=== PATIENT | male | born 1930 | race Caucasian/White ===

== ENCOUNTER 2017-03-08 06:22 | Emergency (ER) | payer MEDICARE ==
[2017-03-08 06:59] LABS: BASOPHILS 0.1 % (0-2); EOSINOPHILS 0.3 % (0-7); HEMATOCRIT 41.7 % (42.0-54.0); HEMOGLOBIN 13.8 g/dL (13.5-17.5); IMMATURE GRANULOCYTES 0.3 % (0-5); LYMPHOCYTES 11.6 % (15-50); MCH 29.6 pg (26.0-34.0); MCHC 33.1 g/dL (31.0-37.0); MCV 89.3 fL (80.0-100.0); MEAN PLATELET VOLUME 9.2 fL (7.4-10.4); MONOCYTES 4.7 % (2-11); PLATELET COUNT 221 10x3/uL (130-400); RBC 4.67 10x6/uL (4.20-6.10); RDW 15.7 % (11.5-14.5); WBC 11.1 10x3/uL (4.8-10.8)
[2017-03-08 07:29] LABS: INR 2.54 (0.85-1.17); PROTIME 27.5 SECONDS (11.6-15.0)
[2017-03-08 07:32] LABS: ALBUMIN 3.4 g/dL (3.4-5.0); ALKALINE PHOSPHATASE 76 U/L (46-116); ALT (SGPT) 19 U/L (10-68); BILIRUBIN - TOTAL 0.54 mg/dL (0.2-1.3); CALC OSMOLALITY 290 mosm/kg (275-300); CALCIUM 9.1 mg/dL (8.5-10.1); CARBON DIOXIDE 23.4 mmol/L (21.0-32.0); CHLORIDE - SERUM 106 mmol/L (98-107); CREATINE KINASE 38 UL (21-232); CREATININE - SERUM 1.7 mg/dL (0.6-1.3); GLUCOSE 167 mg/dL (74-106); MAGNESIUM - SERUM 1.9 mg/dL (1.8-2.4); POTASSIUM - SERUM 4.4 mmol/L (3.5-5.1); PROTEIN - SERUM 8.2 g/dL (6.4-8.2); SODIUM 142 mmol/L (136-145); TROPONIN-I < 0.017 ng/mL (0.000-0.060); UREA NITROGEN 25 mg/dL (7-18); eGFR NON AFRICAN AMERICAN 41 mL/min (90-120)
== END 2017-03-08 09:50 | disposition home or self-care (01) ==
LOC: D.ER 06:22
PROVIDERS: Emergency Medicine
DX: K52.9 Noninfective gastroenteritis and colitis, unspecified (principal); F17.200 Nicotine dependence, unspecified, uncomplicated; I44.0 Atrioventricular block, first degree; I44.60 Unspecified fascicular block

== ENCOUNTER → 2017-06-06 16:31 | Outpatient (CLI) | payer MEDICARE ==
[2017-06-06 18:20] LABS: CHOL - HDL RATIO 3.6 ratio (2.3-4.9); LDL-HDL RATIO 2.2 ratio (1.5-3.5)
== END | disposition home or self-care (01) ==
LOC: D.LABREF 16:31
PROVIDERS: Internal Medicine Rheumatology
DX: E78.5 Hyperlipidemia, unspecified (principal)

== ENCOUNTER → 2018-03-28 17:07 | Outpatient (CLI) | payer MEDICARE ==
[2018-03-28 17:58] LABS: CHOL - HDL RATIO 3.3 ratio (2.3-4.9)
== END | disposition home or self-care (01) ==
LOC: D.LABREF 17:07
PROVIDERS: Internal Medicine Interventional Cardiology
DX: E78.5 Hyperlipidemia, unspecified (principal)

== ENCOUNTER 2019-08-12 04:16 | Inpatient (IN) | payer MEDICARE ==
[~2019-08-12] VITALS: Ht 165.1 cm; Wt 40.8 kg
[2019-08-12] MEDS ORDERED: COUMADIN1 MG PO (04:25)
[2019-08-12 05:03] LABS: BASOPHILS 0.1 % (0-2); EOSINOPHILS 0.2 % (0-7); HEMATOCRIT 34.2 % (42.0-54.0); HEMOGLOBIN 10.9 g/dL (13.5-17.5); IMMATURE GRANULOCYTES 0.2 % (0-5); LYMPHOCYTES 9.3 % (15-50); MCH 27.1 pg (26.0-34.0); MCHC 31.9 g/dL (31.0-37.0); MCV 85.1 fL (80.0-100.0); MONOCYTES 6.5 % (2-11); NEUTROPHILS 83.7 % (40-80); PLATELET COUNT 235 10x3/uL (130-400); RBC 4.02 10x6/uL (4.20-6.10); RDW 15.6 % (11.5-14.5); WBC 12.3 10x3/uL (4.8-10.8)
[2019-08-12 05:06] LABS: CALC OSMOLALITY 281 mosm/kg (275-300); CALCIUM 8.7 mg/dL (8.5-10.1); CARBON DIOXIDE 25.1 mmol/L (21.0-32.0); CHLORIDE - SERUM 105 mmol/L (98-107); CREATININE - SERUM 1.3 mg/dL (0.6-1.3); POTASSIUM - SERUM 4.1 mmol/L (3.5-5.1); SODIUM 140 mmol/L (136-145); UREA NITROGEN 21 mg/dL (7-18); eGFR NON AFRICAN AMERICAN 55 mL/min (90-120)
[2019-08-12 05:15] LABS: ALBUMIN 2.8 g/dL (3.4-5.0); ALKALINE PHOSPHATASE 55 U/L (46-116); ALT (SGPT) 16 U/L (10-68); AMYLASE - SERUM 109 U/L (25-115); BILIRUBIN - TOTAL 0.62 mg/dL (0.2-1.3); GLUCOSE 100 mg/dL (74-106)
[2019-08-12 05:16] LABS: LIPASE 37 U/L (73-393); TROPONIN-I < 0.017 ng/mL (0.000-0.060)
[2019-08-12 06:41] VITALS: BP 102/48
[2019-08-12 07:05] LABS: APPEARANCE CLEAR (CLEAR); BILIRUBIN NEGATIVE (NEGATIVE); COLOR YELLOW (YELLOW); GLUCOSE NEGATIVE (NEGATIVE); KETONE NEGATIVE (NEGATIVE); NITRITE NEGATIVE (NEGATIVE); PROTEIN NEGATIVE (NEGATIVE); SPECIFIC GRAVITY 1.015 (1.005-1.020); UROBILINOGEN NORMAL (NORMAL)
--- NOTE | 2019-08-12 07:05 | NUR ---
ASSUMED CARE OF PT. RESTING IN BED WITH COVERS OVER HEAD. AROUSES EASILY WHEN NAME CALLED. VSS. NAD NOTED. IVF INFUSING TO LEFT UPPER CHEST PORT VIA PUMP DRSG D/I. COLOSTOMY BAG INTAT TO RLQ WITH MOD AMT LOOSE STOOL NOTED IN BAG. PT HAS URINAL BTW LEGS "I KEEP IT THERE"
[2019-08-12 07:10] VITALS: BP 98/51
--- NOTE | 2019-08-12 07:49 | NUR ---
REPORT CALLED TO PREMA MILLER
--- NOTE | 2019-08-12 07:55 | NUR ---
TRANSPORTED TO ROOM #2233, CONDITION STABLE
[2019-08-12] MEDS ORDERED: LANOXIN125 MCG PO (08:13)
--- NOTE | 2019-08-12 08:18 | NUR ---
PT RECIEVED FROM ER. NO SIGNS OF DISTRESS. IV TO LEFT CHEST PORT PATENT NO REDNESS OR TENDERESS. IV TO LEFT FORARM PATENT. COLOSTOMY RIGHT SIDE PATENT. COMPLAINS OF PAIN. WILL ADDRESS. DENIES ANY FURTHER NEED AT THIS TIME. CALL LIGHT IN REACH. BED LOW POSITION. NO FAMILY AT BEDSIDE AT THIS TIME.
[2019-08-12 08:36] VITALS: BP 124/60
[2019-08-12 08:55] VITALS: BP 83/59; BMI 15.0
[2019-08-12 10:11] LABS: APTT 51.1 SECONDS (22.8-39.4); INR 1.66 (0.85-1.17)
[2019-08-12 11:14] LABS: % SATURATION 6 % (15-55); IRON 15 ug/dl (35-150); TOTAL IRON BIND CAPACITY 227 ug/dl (260-445); UNSAT IRON BIND CAPACITY 212 ug/dl (150-375)
[2019-08-12 13:24] VITALS: BP 84/42
--- NOTE | 2019-08-12 19:30 | NUR ---
A&O X 4, SUPINE IN BED. OSTOMY TO RIGHT ABDOMEN. DRESSING REMOVED, AREA CLEANSED AND NEW BAG APPLIED. STOMA IS PINK AND MOIST, SURROUNDING SKIN APPEARS PINK AND IRRITATED. WILL CONTINUE TO MONITOR.
[2019-08-12 20:50] VITALS: BP 104/48
[2019-08-13 00:59] VITALS: BP 92/39
[2019-08-13 04:06] VITALS: BP 104/40
--- NOTE | 2019-08-13 04:16 | NUR ---
I have reviewed this patient and I concur with the Shift Assessment completed by the Licensed Practical Nurse today this shift.
[2019-08-13 06:50] LABS: BASOPHILS 0 % (0-2); EOSINOPHILS 0.3 % (0-7); HEMATOCRIT 28.8 % (42.0-54.0); HEMOGLOBIN 8.9 g/dL (13.5-17.5); IMMATURE GRANULOCYTES 0.3 % (0-5); MCH 26.4 pg (26.0-34.0); MCHC 30.9 g/dL (31.0-37.0); MCV 85.5 fL (80.0-100.0); MEAN PLATELET VOLUME 9.2 fL (7.4-10.4); MONOCYTES 5.9 % (2-11); NEUTROPHILS 86.5 % (40-80); PLATELET COUNT 188 10x3/uL (130-400); RBC 3.37 10x6/uL (4.20-6.10); RDW 15.7 % (11.5-14.5); WBC 9.3 10x3/uL (4.8-10.8)
[2019-08-13 07:03] LABS: ALBUMIN 2.2 g/dL (3.4-5.0); ANION GAP 14.4 mmol/L (8-16); BILIRUBIN - TOTAL 0.37 mg/dL (0.2-1.3); CARBON DIOXIDE 21.8 mmol/L (21.0-32.0); CREATININE - SERUM 1.2 mg/dL (0.6-1.3); MAGNESIUM - SERUM 1.7 mg/dL (1.8-2.4); PHOSPHOROUS 2.8 mg/dL (2.5-4.9); POTASSIUM - SERUM 4.2 mmol/L (3.5-5.1); PROTEIN - SERUM 5.3 g/dL (6.4-8.2)
[2019-08-13 07:22] LABS: INR 2.12 (0.85-1.17)
[2019-08-13 09:24] VITALS: BP 106/57
--- NOTE | 2019-08-13 11:50 | NUR ---
PATIENT RECIEVED THIS AM RESTING IN BED. PATIENT TOLERATING FULL LIQUID DIET WELL. TURNED AND REPOSITIONED EVERY TWO HOURS. SUPPLEMENT GIVEN BEFORE LUNCH.
[2019-08-13 13:14] VITALS: BP 82/42
[2019-08-13 13:42] VITALS: Ht 165.1 cm; Wt 40.8 kg
--- NOTE | 2019-08-13 14:34 | MORECARE ---
CASE MANAGEMENT DISCHARGE SUMMARY PATIENT: YANNA QUEZADA UNIT: [id number] ADM DATE: 08/12/19 AGE: 88 : 31 SEX: M ROOM/BED: D.2233 AUTHOR: RUIZ KIRKLAND PHYSICIAN: REFERRING PHYSICIAN: KAYKAY NEVILLE MD DATE OF SERVICE: 08/13/19 Discharge Plan Patient Name: [facility] QUEZ[facility] [facility] 1930 Planned Disposition: Inpatient Rehab Anticipated Discharge Date: Discharge Date: Expected LOS: Initial Reviewer: [email or web address] Initial Review Date: 08/13/2019 Generated: 08/13/19 3:34 pm Patient Name: YANNA QUEZADA Page 08888 at 1434 All edits/amendments must be made on the electronic document DICTATION DATE: 08/13/191432 RULING MACHINE FEEDER: ZEINA 08/13/191432 RPT#: [id number] DC DATE: STATUS: ADM IN [facility] [address] [place] [address] END OF REPORT
--- NOTE | 2019-08-13 14:51 | MORECARE ---
CASE MANAGEMENT DISCHARGE SUMMARY PATIENT: YANNA JONES UNIT: [id number] ADM DATE: 08/12/19 AGE: 88 : 31 SEX: M ROOM/BED: D.2233 AUTHOR: RUIZ KIRKLAND PHYSICIAN: REFERRING PHYSICIAN: KAYKAY NEVILLE MD DATE OF SERVICE: 08/13/19 Discharge Plan Patient Name: YANNA JONES [facility] [facility] 1930 Planned Disposition: Inpatient Rehab Anticipated Discharge Date: Discharge Date: Expected LOS: Initial Reviewer: [email or web address] Initial Review Date: 08/13/2019 Generated: 08/13/19 3:51 pm DCPIA - Discharge Planning Initial Assessment Updated by [email or web address]: Keerthi Jaime on 08/13/19 2:49 pm * Is the patient Alert and Oriented? Yes * How many steps to enter\exit or inside your home? few/0 * PCP Dr. Horton * Pharmacy [facility] [address] * Preadmission Environment Home Alone * ADLs Partial Dependent * Partial ADLs (Assistance needed) Ambulation * Equipment Cane Nebulizer Other Oxygen * Other Equipment Portable oxygen * List name and contact numbers for known caregivers / representatives who currently or will assist patient after discharge: Obie Jones - [phone] * Verbal permission to speak to the caregivers and representatives has been obtained from the patient. Yes * Community resources currently utilized None * Additional services required to return to the preadmission environment? Yes * Can the patient safely return to the preadmission environment? No * Has this patient been hospitalized within the prior 30 days at any hospital? Yes Last DP export: 08/13/19 1:34 Patient Name: YANNA JONES Page 71188 at 1451 All edits/amendments must be made on the electronic document DICTATION DATE: 08/13/191450 OUTSIDE PRODUCTION INSPECTOR: ZEINA 08/13/191450 RPT#: [id number] DC DATE: STATUS: ADM IN [facility] [address] [place] [address] END OF REPORT
--- NOTE | 2019-08-13 15:00 | MORECARE ---
CASE MANAGEMENT DISCHARGE SUMMARY PATIENT: YANNA JONES UNIT: [id number] ADM DATE: 08/12/19 AGE: 88 : 31 SEX: M ROOM/BED: D.2233 AUTHOR: MARITADOC PHYSICIAN: REFERRING PHYSICIAN: KAYKAY NEVILLE MD DATE OF SERVICE: 08/13/19 Discharge Plan Patient Name: YANNA JONES Facility: [facility]:[place] : 1930 Planned Disposition: Inpatient Rehab Anticipated Discharge Date: Discharge Date: Expected LOS: Initial Reviewer: [email or web address] Initial Review Date: 08/13/2019 Generated: 08/13/19 4:00 pm Comments DCP- Discharge Planning Updated by [email or web address]: Keerthi Jaime on 08/13/19 1:[address] Patient Name: YANNA JONES Admission Status: Elective Accout number: [id number] Admission Date: 08-12-2019 : 1930 Admission Diagnosis: Attending: KAYKAY NEVILLE Current LOS: 1 Anticipated DC Date: Planned Disposition: Inpatient Rehab Primary Insurance: MEDICARE A & B Discharge Planning Comments: CM met with patient to complete initial dc planning assessment, he is alone in the room. CM educated patient on the CM role and verbal consent given by patient to complete assessment. Patient lives in a RV alone. He states "My son is always over visiting." He states he is independent with his care. He states he still drives and independent with his ADL's. He states he has a cane, declines walker, states no room in the RV for a walker. CM discussed availability of home health, rehab services, and medical equipment. Patient denied known discharge needs at this time. He did say he was weak and is agreeable to rehab, but would like to discuss it with his son first. I left a list of Inpatient rehab units and HHS with him to discuss with his son. CM will continue to follow and will assist as needed with dc plans/needs. Employment Assistant: Keerthi Jaime DCPIA - Discharge Planning Initial Assessment Updated by [id number]: Keerthi Jaime on 08/13/19 2:49 pm * Is the patient Alert and Oriented? Yes * How many steps to enter\\exit or inside your home? few/0 * PCP Dr. Horton * Pharmacy [facility] [address] * Preadmission Environment Home Alone * ADLs Partial Dependent * Partial ADLs (Assistance needed) Ambulation * Equipment Cane Nebulizer Other Oxygen * Other Equipment Portable oxygen * List name and contact numbers for known caregivers / representatives who currently or will assist patient after discharge: Obie Jones - [phone] * Verbal permission to speak to the caregivers and representatives has been obtained from the patient. Yes * Community resources currently utilized None * Additional services required to return to the preadmission environment? Yes * Can the patient safely return to the preadmission environment? No * Has this patient been hospitalized within the prior 30 days at any hospital? Yes Last DP export: 08/13/19 1:51 Patient Name: YANNA OJNES Page [id number] at 1500 All edits/amendments must be made on the electronic document DICTATION DATE: 08/13/19 1500 AUTOMATION TEST DEVELOPER: ZEINA 08/13/19 1500 RPT#: [id number] DC DATE: STATUS: ADM IN [facility] [address] [place] [address] END OF REPORT
[2019-08-13 16:27] VITALS: BP 84/40
--- NOTE | 2019-08-13 20:00 | NUR ---
ASSESSMENT PER FLOWSHEET. IV PATENT LEFT INFUSAPORT OF LR AT 50CC'S/HR AND PROCAL AT 75CC'S/HR. SALINE LOCK PATENT TO LEFT FOREARM. TELM. SHOWS SR WITH HR 84. MAURI MAT IN USE. SR UP X2 CALL LIGHT WITHIN REACH.
[2019-08-13 20:40] VITALS: BP 95/48
--- NOTE | 2019-08-14 | NUR ---
COLOSTOMY BAG HAS STARTED LEAKING STOOL. COMPLETE BED BATH WITH LINENS CHANGED NEW OSTOMY SET APPLIED.
[2019-08-14 01:00] VITALS: BP 92/45
--- NOTE | 2019-08-14 03:00 | NUR ---
EYES CLOSED RESPIRATIONS WITH EASE AND UNLABORED.
[2019-08-14 04:47] VITALS: BP 89/40
[2019-08-14 06:36] LABS: BASOPHILS 0.2 % (0-2); EOSINOPHILS 0.3 % (0-7); HEMATOCRIT 25.8 % (42.0-54.0); HEMOGLOBIN 8.3 g/dL (13.5-17.5); IMMATURE GRANULOCYTES 0.5 % (0-5); LYMPHOCYTES 11.7 % (15-50); MCH 27.1 pg (26.0-34.0); MCHC 32.2 g/dL (31.0-37.0); MCV 84.3 fL (80.0-100.0); MEAN PLATELET VOLUME 9.1 fL (7.4-10.4); MONOCYTES 7.4 % (2-11); NEUTROPHILS 79.9 % (40-80); PLATELET COUNT 166 10x3/uL (130-400); RBC 3.06 10x6/uL (4.20-6.10); RDW 15.6 % (11.5-14.5)
[2019-08-14 06:55] LABS: INR 1.78 (0.85-1.17)
[2019-08-14 06:56] LABS: CALC OSMOLALITY 274 mosm/kg (275-300); CALCIUM 7.9 mg/dL (8.5-10.1); CARBON DIOXIDE 20.9 mmol/L (21.0-32.0); CHLORIDE - SERUM 106 mmol/L (98-107); GLUCOSE 94 mg/dL (74-106); MAGNESIUM - SERUM 1.8 mg/dL (1.8-2.4); POTASSIUM - SERUM 3.9 mmol/L (3.5-5.1); SODIUM 136 mmol/L (136-145); UREA NITROGEN 22 mg/dL (7-18); eGFR NON AFRICAN AMERICAN 75 mL/min (90-120)
[2019-08-14 06:58] LABS: PHOSPHOROUS 1.7 mg/dL (2.5-4.9)
[2019-08-14 07:01] LABS: WBC 6.2 10x3/uL (4.8-10.8)
--- NOTE | 2019-08-14 07:47 | NUR ---
PT IS RESTING IN BED WITH EYES OPEN. RESPIRATIONS ARE EVEN AND UNLABORED. PT REFUSES REPOSITIONING AT THIS TIME AND STATES "I WANT A 2 EGG OMLETE AND PAIN MEDICINE". SEE VITALS FLOWSHEET. PT EDUCATED ON HYPOTENSION AND MEDICATION. PT VERABLIZES UNDERSTANDING BUT STILL DEMANDS MEDICATION. PT IS AAO X 4. MAURI ALARM IS ON AND WORKING. OSTOMY TO RLQ NOTED WITH SCANT AMOUNT OF LIGHT BROWN STOOL NOTED IN BAG. TELEMETRY IS ON. PORT INFUSING PER ORDER WITHOUT DIFFICULTY. PT DENIES FURTHER NEEDS. BED IS IN THE LOWEST POSITION. CALL LIGHT AND BEDSIDE TABLE ARE WITHIN REACH. SIDE RAILS X 2 . ALL FALL PRECAUTIONS ARE IN PLACE. WILL CONT TO MONITOR.
[2019-08-14 09:02] VITALS: BP 100/55
--- NOTE | 2019-08-14 12:36 | NUR ---
Rehab Note- Acute Inpatient Rehab prescreen order received. THe patient is a good inpatient acute rehab candidate if in agreeance with [facility] Acute INpatient Rehab when medically stable and ready for discharge from the acute hospital. Spoke with PASCUAL Pendleton in IDT meeting. Will follow at this time. Thank you for this referral! Tabatha Traylor RN Clinical Liaison, [facility] Rehab
[2019-08-14 12:55] VITALS: BP 91/47
[2019-08-14 16:38] VITALS: BP 86/46
--- NOTE | 2019-08-14 20:00 | NUR ---
ASSESSMENT PER FLOWSHEET. IV PATENT LEFT INFP OF PROCAL AT 75CC'S/HR. LR AT 50CC'S/HR. RIGHT ILEOSTOMY IN PLACE WITH SMALL AMOUNT BROWN STOOL NOTED. VOIDS SMALL AMOUNT JOMAR COLORED UA IN URINAL. DENIES PAIN OR DISCOMFORT. NOW ON ROOM AIR. PRN USE OF O2. TELM. SHOWS SR.
[2019-08-14 20:35] VITALS: BP 88/40
--- NOTE | 2019-08-14 22:00 | NUR ---
MEDS PER MAR. DENIES NEEDS.
[2019-08-15] VITALS (7 sets, daily range): BP systolic 98–138; BP diastolic 45–79
--- NOTE | 2019-08-15 | NUR ---
EYES CLOSED RESPIRATIONS WITH EASE AND UNLABORED.
--- NOTE | 2019-08-15 01:54 | NUR ---
RESTING QUIETLY DENIES NEEDS.
[2019-08-15 07:35] LABS: BASOPHILS 0 % (0-2); EOSINOPHILS 0.5 % (0-7); HEMATOCRIT 27.1 % (42.0-54.0); HEMOGLOBIN 8.5 g/dL (13.5-17.5); IMMATURE GRANULOCYTES 1.2 % (0-5); LYMPHOCYTES 12.4 % (15-50); MCH 26.4 pg (26.0-34.0); MCHC 31.4 g/dL (31.0-37.0); MCV 84.2 fL (80.0-100.0); MEAN PLATELET VOLUME 9.1 fL (7.4-10.4); MONOCYTES 5.6 % (2-11); NEUTROPHILS 80.3 % (40-80); RBC 3.22 10x6/uL (4.20-6.10); RDW 15.7 % (11.5-14.5); WBC 6.6 10x3/uL (4.8-10.8)
--- NOTE | 2019-08-15 07:37 | NUR ---
AWAKE AND ALERT. ORIENTED X3. NO C/O AT THIS TIME. LUNGS ARE CLEAR BUT DIMINISHED THROUGHOUT. NO COUGH NOTED. REQUESTED OXYGEN BE PLACED AT 2L NC BECAUSE HE COULDN'T CATCH HIS BREATH. HIS SAT IS 95%. WILL MONITOR. SKIN IS INTACT WITHOUT REDNESS. COLOSTOMY IS PATENT WITHOUT REDNESS. STOMA IS PINK AND VIABLE. LEFT PORT IS PATENT WITHOUT REDNESS AT INSERTION SITE. DENIES NEEDS.
[2019-08-15 07:45] LABS: PLATELET COUNT 202 10x3/uL (130-400)
[2019-08-15 07:50] LABS: CALC OSMOLALITY 272 mosm/kg (275-300); CALCIUM 7.6 mg/dL (8.5-10.1); CARBON DIOXIDE 22.8 mmol/L (21.0-32.0); CHLORIDE - SERUM 106 mmol/L (98-107); CREATININE - SERUM 0.9 mg/dL (0.6-1.3); GLUCOSE 94 mg/dL (74-106); INR 1.64 (0.85-1.17); MAGNESIUM - SERUM 1.8 mg/dL (1.8-2.4); PHOSPHOROUS 1.8 mg/dL (2.5-4.9); POTASSIUM - SERUM 4.2 mmol/L (3.5-5.1); PROTIME 18.8 SECONDS (11.6-15.0); SODIUM 135 mmol/L (136-145); UREA NITROGEN 21 mg/dL (7-18); eGFR NON AFRICAN AMERICAN 85 mL/min (90-120)
--- NOTE | 2019-08-15 08:44 | NUR ---
REQUESTED AND GIVEN ONE HYDROCODONE PO FOR C/O ABDOMENAL PAIN LEVEL 7. WILL MONITOR.
--- NOTE | 2019-08-15 10:00 | NUR ---
ATE MOST OF BREAKFAST. TOOK AM MEDS WITHOUT DIFFICUTLY. DENIES NEEDS.
--- NOTE | 2019-08-15 12:12 | MORECARE ---
CASE MANAGEMENT DISCHARGE SUMMARY PATIENT: YANNA JONES UNIT: [id number] ADM DATE: 08/12/19 AGE: 88 : 31 SEX: M ROOM/BED: D.2233 AUTHOR: RUIZ KRIKLAND PHYSICIAN: REFERRING PHYSICIAN: KAYKAY NEVILLE MD DATE OF SERVICE: 08/15/19 Discharge Plan Patient Name: YANNA JONES Facility[facility]:[place] : 1930 Planned Disposition: Inpatient Rehab Anticipated Discharge Date: Discharge Date: Expected LOS: Initial Reviewer: [email or web address] Initial Review Date: 08/13/2019 Generated: 08/15/19 1:12 pm Comments DCP- Discharge Planning Updated by [email or web address]: Keerthi Jaime on 08/15/19 11:[address] I spoke with the patient again concerning discharge planning/needs. He states "I am not going to rehab, I have to get home." I discussed home health and he declines at this time. He states he would like to go home tomorrow when his son is able to pick him up. I informed him that if he got home and decided he did need rehab or home health, to let his primary care doctor know and they can order it for him and he can be directly admitted to rehab within the next 30 days, voiced understanding. I informed Yesitiny LealRoche that the patient is requesting discharge tomorrow. CM will continue to follow and assist with discharge planning/needs. DCP- Discharge Planning Updated by [email or web address]: Keerthi Jaime on 08/13/19 1:[address] Patient Name: YANNA JONES Admission Status: Elective Accout number: [id number] Admission Date: 08-12-2019 : 1930 Admission Diagnosis: Attending: KAYKAY NEVILLE Current LOS: 1 Anticipated DC Date: Planned Disposition: Inpatient Rehab Primary Insurance: MEDICARE A & B Discharge Planning Comments: CM met with patient to complete initial dc planning assessment, he is alone in the room. CM educated patient on the CM role and verbal consent given by patient to complete assessment. Patient lives in a alone. He states "My son is always over visiting." He states he is independent with his care. He states he still drives and independent with his ADL's. He states he has a cane, declines walker, states no room in the RV for a walker. CM discussed availability of home health, rehab services, and medical equipment. Patient denied known discharge needs at this time. He did say he was weak and is agreeable to rehab, but would like to discuss it with his son first. I left a list of Inpatient rehab units and HHS with him to discuss with his son. CM will continue to follow and will assist as needed with dc plans/needs. Full Stack Developer: Keerthi Jaime DCPIA - Discharge Planning Initial Assessment Updated by [email or web address]: Keerthi Jaime on 08/13/19 2:49 pm * Is the patient Alert and Oriented? Yes * How many steps to enter\\exit or inside your home? few/0 * PCP Dr. Horton * Pharmacy [facility] [address] * Preadmission Environment Home Alone * ADLs Partial Dependent * Partial ADLs (Assistance needed) Ambulation * Equipment Cane Nebulizer Other Oxygen * Other Equipment Portable oxygen * List name and contact numbers for known caregivers / representatives who currently or will assist patient after discharge: Obie Jones - [phone] * Verbal permission to speak to the caregivers and representatives has been obtained from the patient. Yes * Community resources currently utilized None * Additional services required to return to the preadmission environment? Yes * Can the patient safely return to the preadmission environment? No * Has this patient been hospitalized within the prior 30 days at any hospital? Yes Coverage Notice Reviewer: [email or web address] Emy Jaime Notice Issued Date-Time: 08/15/2019 12:07 Notice Type: IM Discharge Notice Notice Delivered To: Patient Relationship to Patient: Bacon Skin Lifter Name: Delivery Method: HAND - Hand Delivered Sis Days: Prior Verbal Notification: Recipient Understood Notice: Yes Recipient Signature: Yes Med Rec Note Co-signed by Attending: Coverage Notice Comment: IMM explained, signed, copy placed in MR Reviewer: [email or web address] Emy Jaime Notice Issued Date-Time: 08/15/2019 12:07 Notice Type: Patient Choice Letter Notice Delivered To: Patient Relationship to Patient: Bacon Skin Lifter Name: Delivery Method: HAND - Hand Delivered Sis Days: Prior Verbal Notification: Recipient Understood Notice: Yes Recipient Signature: Yes Med Rec Note Co-signed by Attending: Coverage Notice Comment: Declines [facility] Last DP export: 08/13/19 2:00 Patient Name: YANNA JONES Page [id number] at 1212 All edits/amendments must be made on the electronic document DICTATION DATE: 08/15/191211 BOX LINING MACHINE FEEDER: ZEINA 08/15/191211 RPT#: [id number] DC DATE: STATUS: ADM IN [facility] [address] [place] [address] END OF REPORT
--- NOTE | 2019-08-15 14:18 | NUR ---
Nutrition follow-up: Diet advanced to regular soft PO intake ~50% average of last 3 meals; ate good at lunch today Labs reviewed Wt: 90# Pt reports he is gassy today because he ate so much yesterday. RDN following.
--- NOTE | 2019-08-15 18:40 | NUR ---
ATE ABOUT HALF OF SUPPER. DENIES NEEDS. NO CHANGES NOTED.
[2019-08-15] MEDS ORDERED: LEVAQUIN750 MG PO (22:18)
[2019-08-15] MEDS ORDERED: FLAGYL500 MG PO (22:20)
--- NOTE | 2019-08-16 01:30 | NUR ---
PT AGITATED BED ALARM SOUNDING FREQUENTLY WHILE MOVING IN BED. MAURI IQBAL SIGNED. LINENS CHANGED. PT STATES HE WANTS TO BUY A PACK OF CIGARETTES, BUT WILL NOT WEAR A NICOTINE PATCH. PT IN BED, DENIES NEEDS AT THIS TIME, STATES HE'S JUST STAYING UNTIL 7AM. WILL CONTINUE TO MONITOR.
[2019-08-16 05:54] VITALS: BP 97/48
--- NOTE | 2019-08-16 06:33 | NUR ---
I have reviewed this patient and I concur with the Shift Assessment completed by the Licensed Practical Nurse today this shift.
--- NOTE | 2019-08-16 07:30 | NUR ---
PT AT DESK REQUESTING TO BE DISCHARGED AND VOICES HE WILL LEAVE AMA. DISCUSSED WITH PT ABOUT BEING DISCHARGED AND AWAITING ORDERS FROM PULMANOLOGIST, PT CONTINUES TO VOICE WISHES TO GO HOME. DR. QURESHI NOTIFIED. HE VOICES ALLOW PT TO SIGN OUT AMA, THAT HE FEELS THAT HE HAS CHF AND NEEDS FURTHER TREATMENT.
--- NOTE | 2019-08-16 08:02 | NUR ---
PT DISCHARGE PAPERWORK TAKEN INTO ROOM WITH AMA. DISCUSSED WITH PATIENT AMA. PT CONTINUES TO VOICE WISHES TO DISCHARGE HOMES. SON AT BEDSIDE. DISCUSSED MEDICATIONS CALLED INTO [facility] AND ORDERED BY PCP. SON VOICES HE WILL SHRUB PLANTER MEDICATIONS FOR PT TO TAKE. PORT TO LEFT CHEST WALL FLUSHED WITH HEPARIN AND DISCONTINUED. COVERED WITH 2X2 AND COVERED WITH TEGADERM. PT SIGNED PAPERWORK AND TAKEN OUT VIA W/C TO PRIVATE VEHICLE WITH ALL PERSONAL BELONGINGS.
--- NOTE | 2019-08-16 14:15 | MORECARE ---
CASE MANAGEMENT DISCHARGE SUMMARY PATIENT: YANNA JONES UNIT: [id number] ADM DATE: 08/12/19 AGE: 88 : 31 SEX: M ROOM/BED: D.2233 AUTHOR: RUIZ KIRKLAND PHYSICIAN: REFERRING PHYSICIAN: KAYKAY NEVILLE MD DATE OF SERVICE: 08/16/19 Discharge Plan Patient Name: YANNA JONES Facility: [facility]:[place] : 1930 Planned Disposition: Inpatient Rehab Anticipated Discharge Date: Discharge Date: 08/16/2019 Expected LOS: 0 Initial Reviewer: [email or web address] Initial Review Date: 08/13/2019 Generated: 08/16/19 3:15 pm Comments DCP- Discharge Planning Updated by [email or web address]: Keerthi Jaime on 08/15/19 11:[address] I spoke with the patient again concerning discharge planning/needs. He states "I am not going to rehab, I have to get home." I discussed home health and he declines at this time. He states he would like to go home tomorrow when his son is able to pick him up. I informed him that if he got home and decided he did need rehab or home health, to let his primary care doctor know and they can order it for him and he can be directly admitted to rehab within the next 30 days, voiced understanding. I informed Yesitiny Roche that the patient is requesting discharge tomorrow. CM will continue to follow and assist with discharge planning/needs. DCP- Discharge Planning Updated by [email or web address]: Keerthi Rubiogio on 08/13/19 1:[address] Patient Name: YANNA JONES Admission Status: Elective Accout number: [id number] Admission Date: 08-12-2019 : 1930 Admission Diagnosis: Attending: KAYKAY NEVILLE Current LOS: 1 Anticipated DC Date: Planned Disposition: Inpatient Rehab Primary Insurance: MEDICARE A & B Discharge Planning Comments: CM met with patient to complete initial dc planning assessment, he is alone in the room. CM educated patient on the CM role and verbal consent given by patient to complete assessment. Patient lives in a alone. He states "My son is always over visiting." He states he is independent with his care. He states he still drives and independent with his ADL's. He states he has a cane, declines walker, states no room in the RV for a walker. CM discussed availability of home health, rehab services, and medical equipment. Patient denied known discharge needs at this time. He did say he was weak and is agreeable to rehab, but would like to discuss it with his son first. I left a list of Inpatient rehab units and HHS with him to discuss with his son. CM will continue to follow and will assist as needed with dc plans/needs. Principal Software Engineer: Keerthi Jaime DCPIA - Discharge Planning Initial Assessment Updated by [email or web address]: Keerthi Jaime on 08/13/19 2:49 pm * Is the patient Alert and Oriented? Yes * How many steps to enter\\exit or inside your home? few/0 * PCP Dr. Horton * Pharmacy [facility] [address] * Preadmission Environment Home Alone * ADLs Partial Dependent * Partial ADLs (Assistance needed) Ambulation * Equipment Cane Nebulizer Other Oxygen * Other Equipment Portable oxygen * List name and contact numbers for known caregivers / representatives who currently or will assist patient after discharge: Obie Jones - [phone] * Verbal permission to speak to the caregivers and representatives has been obtained from the patient. Yes * Community resources currently utilized None * Additional services required to return to the preadmission environment? Yes * Can the patient safely return to the preadmission environment? No * Has this patient been hospitalized within the prior 30 days at any hospital? Yes Coverage Notice Reviewer: [id number] Emy Jaime Notice Issued Date-Time: 08/15/2019 12:07 Notice Type: IM Discharge Notice Notice Delivered To: Patient Relationship to Patient: Drug Clerk Name: Delivery Method: HAND - Hand Delivered Sis Days: Prior Verbal Notification: Recipient Understood Notice: Yes Recipient Signature: Yes Med Rec Note Co-signed by Attending: Coverage Notice Comment: IMM explained, signed, copy placed in MR Reviewer: [email or web address] Emy Jaime Notice Issued Date-Time: 08/15/2019 12:07 Notice Type: Patient Choice Letter Notice Delivered To: Patient Relationship to Patient: Drug Clerk Name: Delivery Method: HAND - Hand Delivered Sis Days: Prior Verbal Notification: Recipient Understood Notice: Yes Recipient Signature: Yes Med Rec Note Co-signed by Attending: Coverage Notice Comment: Declines [facility] Last DP export: 08/15/19 11:12 Patient Name: YANNA JONES Page 82510 at 1415 All edits/amendments must be made on the electronic document DICTATION DATE: 08/16/191414 SURVEY QUESTIONNAIRE DESIGNER: ZEINA 08/16/191414 RPT#: [id number] DC DATE:08/16/19 STATUS: DIS IN [facility] [address] [place] [address] END OF REPORT
== END 2019-08-16 08:26 | disposition home or self-care (01) | DRG 871 ==
LOC: D.ER 04:16 → D.MS 06:56
PROVIDERS: Family Medicine; Radiology Diagnostic Radiology; ADMIT Internal Medicine Nephrology; ATTEND Internal Medicine Nephrology
DX: A41.9 Sepsis, unspecified organism (principal); E43 Unspecified severe protein-calorie malnutrition; J69.0 Pneumonitis due to inhalation of food and vomit; K51.014 Ulcerative (chronic) pancolitis with abscess; J98.09 Other diseases of bronchus, not elsewhere classified; I95.9 Hypotension, unspecified; I25.10 Atherosclerotic heart disease of native coronary artery without angina pectoris; J43.9 Emphysema, unspecified; I71.4 Abdominal aortic aneurysm, without rupture; Z93.3 Colostomy status; Z85.038 Personal history of other malignant neoplasm of large intestine; R00.0 Tachycardia, unspecified; D50.9 Iron deficiency anemia, unspecified; D72.829 Elevated white blood cell count, unspecified

== ENCOUNTER 2019-09-09 12:01 | Inpatient (IN) | payer MEDICARE ==
[~2019-09-09] VITALS: Ht 165.1 cm; Wt 34.0 kg
--- NOTE | ~2019-09-09 | RHP ---
PATIENT: YANNA QUEZADA MEDICAL RECORD: [id number] ACCOUNT: [id number] LOCATION:[facility] : 31 ADMISSION DATE: 09/09/19 REHABILITATION HISTORY AND PHYSICAL EXAMINATION POST ADMISSION PHYSICIAN EXAMINATION ADMITTING DIAGNOSIS: Disuse myopathy. HISTORY OF PRESENT ILLNESS: The patient is an 88-year-old gentleman of Dr. Horton who has had a recent hospitalization at [facility] and also [facility] in [place]. He was in [facility] from 08/12/2019 to 08/16/2019 for abdominal pain, found to have an abdominal pelvic abscess and was treated with IV antibiotic therapy. Discharged home and apparently did not do very well there. Apparently, he had multiple falls through the holidays and after speaking with his PCP, he was admitted on 08/30/2019 to [facility]. He apparently was dehydrated, received IV fluids, was started on appetite stimulant. He has declined any home health or Rehab. He has not been doing well and continues to have increased proximal weakness, multiple falls, self-care deficits and decreased quality of life, is malnourished and has recent dehydration. He needs vital signs monitored closely. He has got hypotension, supplemental O2 requirements, monitor his lab values closely. He is on electrolyte protocol. Also his p.o. intake with appetite stimulant. He has an output with colostomy. He has had multiple falls, proximal muscle weakness, deconditioning, debility, impaired mobility, gait disturbance, activity intolerance, high fall risk and self-care deficits. These are his barriers to him being home alone by himself this time safely. He was living at home alone prior to these recent illnesses, was independent with ADLs and mobility and still driving. He is currently living with his son and [id number], requiring set up to moderate assist with his ADLs and mod assist with his mobility, only able to ambulate approximately 20 feet. He is very weak, deconditioned and debilitated and he and his family would like for him to return home at his prior level of function or better after rehabilitation. COMORBIDITIES: Include dehydration, recent rectosigmoid abscess, protein-calorie malnutrition, pancolitis. 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 PAST MEDICAL HISTORY: Significant for CVA in the past. He has got a history of colon cancer. PAST SURGICAL HISTORY: Includes colostomy and recent surgery for abscess. ALLERGIES: SULFA AND MORPHINE. CURRENT MEDICATIONS: Include digoxin 0.125 mg daily, he is on a Nicoderm patch, he is on Mevacor 40 mg at bedtime, he is on warfarin 2 mg daily, simethicone 240 mg every 6 hours, Tylenol 5 cc every 6 hours p.r.n., Zofran 4 mg every 4 hours p.r.n., and MiraLax 17 g in 8 ounces of water daily. HABITS: He does have a history of tobacco use, denies alcohol use. FAMILY HISTORY: Noncontributory. SOCIAL HISTORY: The patient hopes to return back home and get back to his prior HISTORY AND PHYSICAL [id number] YANNA QUEZADA level of functioning. REVIEW OF SYSTEMS: GENERAL: Does complain of some weakness. HEENT: Denies cold, cough, or congestion. CARDIOVASCULAR: Denies any chest pain. PHYSICAL EXAMINATION: VITAL SIGNS: Stable, afebrile. GENERAL: A markedly cachectic elderly gentleman who is in no acute distress. HEENT: Normocephalic and atraumatic. Mucosa appears somewhat dry. TMs appear supple. NECK: Supple also. LUNGS: Clear in upper worthy. No wheeze, rhonchi or rales. HEART: Regular rate and rhythm. He does have a holosystolic murmur. ABDOMEN: Soft, benign, and nondistended. Positive bowel sounds times 4. EXTREMITIES: No clubbing, cyanosis or edema. He does have multiple bruising. NEUROLOGIC: He is slow to mentate. LABORATORY DATA: White count is 6.9, H&H of 10 and 34 and platelet count is 238. Sodium 139, potassium 3.9, BUN and creatinine of 33 and 1.2, and blood sugar is noted to be 91. ASSESSMENT: This is an 88-year-old gentleman admitted to the rehab with a working diagnosis of disuse myopathy. The patient has potential to make improvement. We instituted the following multidisciplinary therapies including, but not limited to physical, occupational, respiratory, speech, nutritional services, prosthetics and orthotics. Given his complex medical condition and risks for more complications, rehabilitation services cannot be provided at a low level of care such as retirement facility. PLAN: 1. Admit to [facility] for intensive inpatient therapy to include the following disciplines; A. Physical therapy to improve gait, all transfer skills and bed mobility to a modified independent level. B. Occupational therapy to a modified independent level. C. Case management to assist with discharge planning and placement options. D. Nutrition to assist with nutritional needs. E. Rehabilitation nursing to assist in monitoring the patient's underlying medical conditions and to assist with any type of bowel or bladder management. 2. The patient's current medication and medical care will be continued. 3. The patient will be placed on standard fall precautions. 4. The patient's INR is 1.75; I imagine this is probably pretty close for gentleman who is 88 years of age and fall risk. 5. We will see again in the a.m. TRANSINT:[id number] Voice Confirmation ID: [id number] DOCUMENT ID: [id number] JAIMIE notes whether there has been none or any medical/functional change since admission: - The patient has had a significant decline. HISTORY AND PHYSICAL [id number] YANNA QUEZADA attests patient continues to be appropriate for IRF: - Continues to be appropriate. MAGO WAHL MD CC: [id number] DICTATION DATE: 09/10/19816 ROLL SLICING MACHINE TENDER: 09/10/19911 ADM IN [facility] [address] [place] [address]
[~2019-09-09 12:01] MED LIST: COUMADIN1 MG PO; FLAGYL500 MG PO; LANOXIN125 MCG PO; LEVAQUIN750 MG PO
[2019-09-09] MEDS ORDERED: LOVASTATIN40 MG PO (13:16)
[2019-09-09] MEDS ORDERED: PEPCID AC20 MG PO (13:17)
[2019-09-09] MEDS ORDERED: ZOFRAN4 MG PO (13:18)
[2019-09-09] MEDS ORDERED: GAS-X125 M1 PO (13:19)
[2019-09-09] MEDS ORDERED: TYLENOL W/CODEIN5 ML PO (13:21)
[2019-09-09 14:14] VITALS: BP 101/45; BMI 12.5
[2019-09-09 15:15] VITALS: Ht 165.1 cm; Wt 34.0 kg
[2019-09-09 16:01] LABS: INR 1.75 (0.85-1.17); PROTIME 20.2 SECONDS (11.6-15.0)
--- NOTE | 2019-09-09 16:19 | NUR ---
PATIENT ADMITTED TO REHAB FROM ACUTE FLOOR. PATIENT LIVES IN A RV. DR. CHICAS IS PATIENT PCP. DME AT HOME IS A NEBULIZER, CANE AND O2. DISCHARGE PLANS ARE FOR PATIENT TO RETURN HOME.
[2019-09-09 19:10] VITALS: BP 110/52
--- NOTE | 2019-09-09 19:10 | NUR ---
BEDSIDE REPORT COMPLETE. PT SITTING UP IN BED AWAKE AND ALERT. RIGHT ILEOSTOMY NOTED. APPLIANCE INTACT. PLACED ON 2L O2 VIA NC. O2 SAT 94% WITH O2. VS STABLE. SHIFT ASSESSMENT COMPLETE. CL IN REACH. FALL PRECAUTIONS IN PLACE. WILL CONTINUE TO MONITOR
--- NOTE | 2019-09-10 00:40 | NUR ---
QUIET HOURS. PT LYING IN BED ON LEFT SIDE EYES CLOSED RESTING COMFORTABLY. RR EVEN AND UNLABORED. CL IN REACH
--- NOTE | 2019-09-10 04:10 | NUR ---
PT LYING IN BED EYES CLOSED RESTING COMFORTABLY. NO SIGNS OF ACUTE DISTRESS NOTED. CL IN REACH
--- NOTE | 2019-09-10 06:23 | NUR ---
COLDFUSION IN ROOM WITH PT. DENIES ANY NEEDS OR PAIN.
[2019-09-10 06:41] LABS: BASOPHILS 0.1 % (0-2); EOSINOPHILS 0.7 % (0-7); HEMOGLOBIN 10.9 g/dL (13.5-17.5); IMMATURE GRANULOCYTES 0.7 % (0-5); MCH 27.7 pg (26.0-34.0); MCHC 32.1 g/dL (31.0-37.0); MCV 86.3 fL (80.0-100.0); MEAN PLATELET VOLUME 9.3 fL (7.4-10.4); MONOCYTES 6.1 % (2-11); NEUTROPHILS 74.4 % (40-80); PLATELET COUNT 238 10x3/uL (130-400); RBC 3.94 10x6/uL (4.20-6.10); RDW 17.8 % (11.5-14.5); WBC 6.9 10x3/uL (4.8-10.8)
[2019-09-10 06:57] LABS: ANION GAP 14.2 mmol/L (8-16); CALCIUM 8.3 mg/dL (8.5-10.1); CARBON DIOXIDE 23.7 mmol/L (21.0-32.0); CREATININE - SERUM 1.2 mg/dL (0.6-1.3); POTASSIUM - SERUM 3.9 mmol/L (3.5-5.1)
--- NOTE | 2019-09-10 07:05 | NUR ---
GREETED PATIENT AND [id number] MYSELF HIS NURSE. PATIENT IS RESTING QUIETLY IN BED AT THIS TIME. RESPIRATIONS EVEN. NO S/S OF DISTRESS. DENIES ANY PAIN AT THIS TIME. DENIES ANY FURTHER NEEDS AT THIS TIME. CALL LIGHT IN REACH.
[2019-09-10 08:18] VITALS: BP 97/55
--- NOTE | 2019-09-10 18:34 | NUR ---
PT. RESTING QUIETLY IN BED. DENIES ANY NEEDS AT THIS TIME. CALL LIGHT IN REACH.
--- NOTE | 2019-09-10 19:20 | NUR ---
BEDSIDE REPORT COMPLETE. PT SITTING UP IN BED EYES CLOSED RESTING. EASILY AROUSED WITH VERBAL STIMULI. DENIES ANY NEEDS OR PAIN. RR EVEN AND UNLABORED. VS STABLE. SHIFT ASSESSMENT COMPLETE. CL IN REACH. FALL PRECAUTIONS IN PLACE. WILL CONTINUE TO MONITOR
[2019-09-10 19:49] VITALS: BP 103/45
--- NOTE | 2019-09-11 00:34 | NUR ---
QUIET HOURS. PT LYING IN BED EYES CLOSED RESTING COMFORTABLY. RR EVEN AND UNLABORED. CL IN REACH
--- NOTE | 2019-09-11 05:06 | NUR ---
PT LYING IN BED EYES CLOSED RESTING QUIETLY. RR EVEN AND UNLABORED. CL IN REACH
[2019-09-11 08:00] VITALS: BP 106/30
[2019-09-11 09:43] LABS: BASOPHILS 0.1 % (0-2); EOSINOPHILS 0.7 % (0-7); HEMATOCRIT 34.5 % (42.0-54.0); HEMOGLOBIN 11.1 g/dL (13.5-17.5); IMMATURE GRANULOCYTES 0.6 % (0-5); LYMPHOCYTES 16.5 % (15-50); MCH 27.5 pg (26.0-34.0); MCHC 32.2 g/dL (31.0-37.0); MCV 85.6 fL (80.0-100.0); MONOCYTES 6.4 % (2-11); NEUTROPHILS 75.7 % (40-80); PLATELET COUNT 237 10x3/uL (130-400); RBC 4.03 10x6/uL (4.20-6.10); RDW 17.6 % (11.5-14.5); WBC 6.8 10x3/uL (4.8-10.8)
[2019-09-11 09:53] LABS: ANION GAP 10.6 mmol/L (8-16); CALCIUM 8.5 mg/dL (8.5-10.1); CARBON DIOXIDE 28.2 mmol/L (21.0-32.0); CREATININE - SERUM 1.1 mg/dL (0.6-1.3); POTASSIUM - SERUM 3.8 mmol/L (3.5-5.1)
--- NOTE | 2019-09-11 15:16 | NUR ---
Nutrition Follow-up: Diet: Regular [facility] Soft + Ensure with meals PO intake: ~20% average x 3 meals as recorded. However, per nursing staff patient is eating well and is ordering multiple trays at meal times. He had two different entrees that he had eaten a little off of each while I was in the room today. He reports that his appetite is getting better. States that he is drinking the Ensure but that he sips on them throughout the day. States that he can't drink one all at once. Last BM: 09/10/19 x 2. WT: 75# (09/09/19) Meds noted: coumadin. Labs reviewed Skin: stage I PU to coccyx Continue current diet. Encouraged PO intake, encouraged intake of Ensure. Will continue to honor all food preferences. RD following.
--- NOTE | 2019-09-11 15:32 | NUR ---
PATIENT DECIDED TO LEAVE AMA. CALLED SON TO INTERVENE AND SON JUST PACKED UP HIS BELONGINGS AND SAID THAT HE WAS TAKING HIM HOME. EDUCATED THE PATIENT ON THE IMPORTANCE OF STAYING AND HE REFUSED STATING THAT HE WAS MEANT TO LEAVE
--- NOTE | 2019-09-12 11:02 | NUR ---
LATE ENTRY: ON 09/11/2019 PATIENT SIGNED HIMSELF OUT AMA.
== END 2019-09-11 15:40 | disposition left against medical advice (07) | DRG 92 ==
LOC: D.REHAB 12:01
PROVIDERS: ADMIT Emergency Medicine; ATTEND Emergency Medicine
DX: G72.89 Other specified myopathies (principal); E46 Unspecified protein-calorie malnutrition; K51.00 Ulcerative (chronic) pancolitis without complications; C18.9 Malignant neoplasm of colon, unspecified; E86.0 Dehydration; I71.4 Abdominal aortic aneurysm, without rupture; D64.9 Anemia, unspecified; J44.9 Chronic obstructive pulmonary disease, unspecified; I50.9 Heart failure, unspecified; I48.0 Paroxysmal atrial fibrillation; R63.0 Anorexia; R62.7 Adult failure to thrive; J98.09 Other diseases of bronchus, not elsewhere classified; R53.81 Other malaise; I95.9 Hypotension, unspecified

== ENCOUNTER 2019-09-11 16:18 | Inpatient (IN) | payer OTHER, MEDICARE ==
[~2019-09-11] VITALS: Ht 165.1 cm; Wt 36.5 kg
[~2019-09-11 16:18] MED LIST changes: +GAS-X125 M1 PO; +LOVASTATIN40 MG PO; +PEPCID AC20 MG PO; +TYLENOL W/CODEIN5 ML PO; +ZOFRAN4 MG PO
[2019-09-11 17:32] LABS: BASOPHILS 0.2 % (0-2); EOSINOPHILS 0.2 % (0-7); HEMATOCRIT 33.1 % (42.0-54.0); HEMOGLOBIN 10.5 g/dL (13.5-17.5); IMMATURE GRANULOCYTES 0.5 % (0-5); LYMPHOCYTES 12.2 % (15-50); MCH 27.3 pg (26.0-34.0); MCHC 31.7 g/dL (31.0-37.0); MCV 86.2 fL (80.0-100.0); MEAN PLATELET VOLUME 9.2 fL (7.4-10.4); MONOCYTES 8.1 % (2-11); NEUTROPHILS 78.8 % (40-80); PLATELET COUNT 220 10x3/uL (130-400); RBC 3.84 10x6/uL (4.20-6.10); RDW 17.5 % (11.5-14.5); WBC 5.9 10x3/uL (4.8-10.8)
[2019-09-11 17:42] LABS: INR 1.77 (0.85-1.17); PROTIME 20.4 SECONDS (11.6-15.0)
[2019-09-11 17:43] LABS: ANION GAP 10.2 mmol/L (8-16); CARBON DIOXIDE 27.7 mmol/L (21.0-32.0); CREATININE - SERUM 1.2 mg/dL (0.6-1.3); POTASSIUM - SERUM 3.9 mmol/L (3.5-5.1)
[2019-09-11 17:49] LABS: ALBUMIN 2.4 g/dL (3.4-5.0); BILIRUBIN - TOTAL 0.19 mg/dL (0.2-1.3); PROTEIN - SERUM 6.8 g/dL (6.4-8.2)
--- NOTE | 2019-09-11 18:00 | NUR ---
RIGHT THUMB AND LEFT WRIST SKIN TEARS CLEANSED WITH WOUND CLEANSER, DRIED, ABX OINTMENT AND NON ADHERENT DRSGS APPLIED.
[2019-09-11 18:07] VITALS: BP 105/51
--- NOTE | 2019-09-11 18:20 | NUR ---
ASSISTED SALVADOR, STATION SUPERVISOR WITH SPLINT APPLICATION TO LEFT HAND/FOREARM
--- NOTE | 2019-09-11 20:18 | NUR ---
PATIENT ARRIVED TO UNIT VIA STRETCHER, ACCOMPANIED BY DIRECTOR OF GROUP SALES AND DAUGHTER, ALL MONITORING INITIATED. VSS. PATIENT DENIES PAIN. SEE ADMISSION ASSESSMENT FOR DETAILS. AAOX4. PPP. 2142 INFORMED ESTIVEN MCKEON APN OF PATIENT'S ARRIVAL. NO NEW ORDERS RECEIVED. [address] KOCH, UPDATE GIVEN ON PATIENT'S STATUS. NO NEW ORDERS RECEIVED. 2345 BP LOW, PATIENT AAOX4, PPP, DENIES PAIN. CALLED AND SPOKE TO ESTIVEN MCKEON APN, ORDERS RECEIVED TO CALL BACK IF MAP BELOW 60. WILL CONTINUE TO MONITOR.
[2019-09-11 20:35] VITALS: BP 101/48; BMI 13.2
[2019-09-11 21:00] VITALS: BP 109/63
[2019-09-11 22:00] VITALS: BP 95/47
[2019-09-11 23:00] VITALS: BP 100/62
[2019-09-12] VITALS (17 sets, daily range): BP systolic 82–151; BP diastolic 28–75; Ht 165.1 cm; Wt 36.5 kg
--- NOTE | 2019-09-12 01:04 | NUR ---
MAP <60, NO BLEEDING NOTED, PATIENT DENIES PAIN. PAGED ESTIVEN MCKEON APN. 0111 ESTIVEN MCKEON RETURNED CALL, NEW ORDERS RECEIVED FOR STAT CBC, AND 500 ML BOLUS AFTER BLOOD DRAW. 0117 SPOKE TO LAB PERSONNEL TO INFORM THEM ABOUT STAT CBC. 0203 BLOOD RESULTS BACK. SPOKE TO ESTIVEN MCKEON APN REGARDING LAB RESULTS, VITAL SIGNS REVIEWED, HR 61, BP 86/40, MAP 51. RR 19. O2 SAT 96 ON ROOM AIR. NO NEW ORDERS RECEIVED. 500 ML BOLUS INFUSING NOW.
[2019-09-12 01:45] LABS: BASOPHILS 0 % (0-2); EOSINOPHILS 1.1 % (0-7); HEMATOCRIT 29.1 % (42.0-54.0); HEMOGLOBIN 9.4 g/dL (13.5-17.5); IMMATURE GRANULOCYTES 0.5 % (0-5); LYMPHOCYTES 18.6 % (15-50); MCH 27.3 pg (26.0-34.0); MCHC 32.3 g/dL (31.0-37.0); MCV 84.6 fL (80.0-100.0); MEAN PLATELET VOLUME 8.9 fL (7.4-10.4); NEUTROPHILS 73.8 % (40-80); PLATELET COUNT 195 10x3/uL (130-400); RBC 3.44 10x6/uL (4.20-6.10); RDW 17.6 % (11.5-14.5); WBC 5.7 10x3/uL (4.8-10.8)
--- NOTE | 2019-09-12 03:10 | NUR ---
REASSESSMENT COMPLETED PER FLOW SHEET, SEE FOR DETAILS. DENIES PAIN OR NEEDS. AAOX4. PPP. 0500 CHG BATH GIVEN, COMPLETE BED LINEN CHANGE PROVIDED. DENIES PAIN OR NEEDS. AAOX4. PPP. CALL LIGHT WITHIN REACH. WILL CONTINUE TO MONITOR.
[2019-09-12 04:52] LABS: BASOPHILS 0.2 % (0-2); EOSINOPHILS 1.3 % (0-7); HEMATOCRIT 29.8 % (42.0-54.0); HEMOGLOBIN 9.5 g/dL (13.5-17.5); IMMATURE GRANULOCYTES 0.4 % (0-5); LYMPHOCYTES 16.5 % (15-50); MCH 27.3 pg (26.0-34.0); MCHC 31.9 g/dL (31.0-37.0); MCV 85.6 fL (80.0-100.0); MEAN PLATELET VOLUME 9.2 fL (7.4-10.4); MONOCYTES 5.8 % (2-11); NEUTROPHILS 75.8 % (40-80); PLATELET COUNT 220 10x3/uL (130-400); RBC 3.48 10x6/uL (4.20-6.10); RDW 17.7 % (11.5-14.5); WBC 5.3 10x3/uL (4.8-10.8)
[2019-09-12 05:10] LABS: ALBUMIN 2.2 g/dL (3.4-5.0); ALKALINE PHOSPHATASE 54 U/L (46-116); ALT (SGPT) 20 U/L (10-68); BILIRUBIN - TOTAL 0.12 mg/dL (0.2-1.3); CALC OSMOLALITY 289 mosm/kg (275-300); CALCIUM 7.4 mg/dL (8.5-10.1); CHLORIDE - SERUM 110 mmol/L (98-107); GLUCOSE 103 mg/dL (74-106); POTASSIUM - SERUM 3.7 mmol/L (3.5-5.1); PROTEIN - SERUM 5.9 g/dL (6.4-8.2); SODIUM 143 mmol/L (136-145); UREA NITROGEN 26 mg/dL (7-18); eGFR NON AFRICAN AMERICAN 75 mL/min (90-120)
[2019-09-12 05:48] LABS: MAGNESIUM - SERUM 1.4 mg/dL (1.8-2.4); PHOSPHOROUS 2.3 mg/dL (2.5-4.9)
--- NOTE | 2019-09-12 08:17 | NUR ---
DR KOCH AND DR MENG HERE SPEAKING WITH PT, UPDATES PROVIDED. NOTED PT TO POSSIBLY TO GO TO OR TODAY FOR HIS AAA. PT STATES HE DOES NOT REALLY WANT TO HAVE SURGERY BUT WANTS TO SPEAK WITH HIS SON AND DAUGHTER BEFORE HE MAKES HIS DECISION. PTS DAUGHTER, ANNEL, ON PHONE SPEAKING WITH DR MENG RECIEVING UPDATES. QUESTIONS AND CONCERNS ADDRESSED. ALSO PER PHYSICIAN ORDERS, PT NPO. VSS. WILL CONTINUE PLAN OF CARE.
--- NOTE | 2019-09-12 09:49 | NUR ---
PTS DAUGHTER IN ROOM SPEAKING WITH PT.
--- NOTE | 2019-09-12 10:07 | NUR ---
PER PT, HAD IMAGING REGARDING AAA DONE AT [facility] IN [place]. CALLED [facility] MEDICAL RECORDS, SPOKE WITH ZAHIDA, STATED TO FAX A INFO REQUEST FORM WHICH HAD PTS NAME, DATE OF , SPECIFIC INFO NEEDED, FOR WHAT TIME FRAME NEEDED. FAX HAS BEEN SENT FOR INFO. FAX CONFIRMATION RECIEVED. WAITING FOR RESPONSE TO [facility]. VSS. WILL CONTINUE PLAN OF CARE.
--- NOTE | 2019-09-12 10:46 | NUR ---
PT AND PT DAUGHTER SPEAKING WITH DR KOCH. QUESTIONS AND CONCERNS ADDRESSED.
--- NOTE | 2019-09-12 11:16 | NUR ---
DR NEVILLE CALLED FOR CLARIFICATION OF FLAGYL ORDER, HE STATES "I DID NOT ORDER THAT MED FOR THIS PT, I WILL REVIEW THE CHART" ALSO ORDER RECIEVED FOR REHAB CONSULT AND NOTIFIED THAT PT STATED HE WISHED TO BE A DNR AND HAD ALSO STATED THIS TO DR KOCH. VSS. WILL CONTINUE PLAN OF CARE.
--- NOTE | 2019-09-12 11:36 | NUR ---
PT REFUSED NICOTINE PATCH STATING HE DID NOT WANT IT.
--- NOTE | 2019-09-12 11:56 | NUR ---
Rehab Note- Acute Inpatient Rehab prescreen order received. The patient went AMA yesterday 09/11/2019 after only being admitted on 09/09/2019. He also has a pending surgery planned. Thank you for this referral! Tabatha Traylor RN Clinical Liaison, [facility] Rehab
[2019-09-12 12:09] LABS: BASOPHILS 0.2 % (0-2); EOSINOPHILS 0.7 % (0-7); HEMATOCRIT 29.8 % (42.0-54.0); HEMOGLOBIN 9.2 g/dL (13.5-17.5); IMMATURE GRANULOCYTES 0.4 % (0-5); LYMPHOCYTES 10.2 % (15-50); MCH 27.1 pg (26.0-34.0); MCHC 30.9 g/dL (31.0-37.0); MCV 87.6 fL (80.0-100.0); MEAN PLATELET VOLUME 8.9 fL (7.4-10.4); NEUTROPHILS 82.5 % (40-80); PLATELET COUNT 200 10x3/uL (130-400); RDW 17.9 % (11.5-14.5); WBC 5.5 10x3/uL (4.8-10.8)
--- NOTE | 2019-09-12 13:25 | CN ---
PATIENT NAME:YANNA JONES MEDICAL RECORD: [id number] : 32 LOCATION:[facility] ADMIT DATE: 09/11/19 ACCOUNT: [id number] CONSULTING PHYSICIAN: MIRACLE MENG MD REFERRING PHYSICIAN: KAYKAY NEVILLE MD DATE OF CONSULTATION: 09/12/2019 HISTORY OF PRESENT ILLNESS: Yanna Jones is an 88-year-old gentleman well known to me with a history of coronary artery disease, subsequent ischemic cardiomyopathy, has done remarkably well over the last several years, has tolerated colectomy as well as ostomy revision, admitted with abdominal pain, found to have a large abdominal aneurysm, seen by Dr. Barrios who thinks percutaneous intervention is very reasonable at this point, I am seeing him preoperatively. PAST MEDICAL HISTORY: Includes; 1. History of hypertension. 2. Hyperlipidemia. 3. Coronary artery disease as described above. 4. Ischemic cardiomyopathy. ALLERGIES: SULFA AND MORPHINE. MEDICATIONS: Include Coumadin per scale, digoxin 0.125 every day, lovastatin 40 every day. SOCIAL HISTORY: Lives by himself. 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 REVIEW OF SYSTEMS: The patient reports easy bruising but reports no swollen glands. The patient reports no fever, no night sweats, no significant weight gain, no significant weight loss. No significant exercise tolerance. The patient reports no dry eyes, no irritation, no vision change. Patient reports no difficulty hearing and no ear pain. Patient reports no frequent nose bleeds or nose and sinus problems. Patient reports on arm pain on exertion. No shortness of breath while lying down. No history of heart murmur. Patient reports no cough, no wheezing or coughing up blood. Patient reports no abdominal pain, no vomiting. Normal appetite. No diarrhea and not vomiting blood. No nausea and no constipation. Patient reports no incontinence. No difficulty urinating. No hematuria. No increased frequency. Patient reports no muscle aches. No weakness, no arthralgias, no back pain. No swelling of the extremities. Patient reports no abnormal mole, no jaundice, no rashes. Reports no loss of consciousness. No weakness and no numbness. No seizures, dizziness, or headaches. The patient reports no depression, no sleep disturbance, feeling safe in a relationship and no alcohol abuse. Patient reports on fatigue. Reports no runny nose or sinus pressure. No itching, no hives, and no frequent sneezing. PHYSICAL EXAMINATION: GENERAL: Elderly gentleman, no acute distress, appears stated age. VITAL SIGNS: Blood pressure 94/45, pulse 67 and regular. HEENT: Normocephalic, atraumatic. NECK: No JVD or bruit. HEART: Regular. S3 gallop. LUNGS: Fair air excursion. CONSULT REPORT [id number] YANNA JONES ABDOMEN: Large, easily palpable aneurysm. EXTREMITIES: Pulses 1+. There is no edema. IMPRESSION: Suspect with just a mild sedation, no contraindication to surgery from my standpoint. Discussed in detail with the patient and the patient's family. TRANSINT:[id number] Voice Confirmation ID: [id number] DOCUMENT ID: [id number] MIRACLE MENG MD at 1325 CC: [id number] DICTATION DATE: 09/12/19830 HOME OFFICE REPRESENTATIVE: 09/12/19 1119 ADM IN [place] [id number] [place] [id number]
--- NOTE | 2019-09-12 13:38 | NUR ---
PER DR NEVILLE, MAGDY CAPPSYL.
--- NOTE | 2019-09-12 13:45 | NUR ---
PER DR KOCH, SALINE LOCK IV.
--- NOTE | 2019-09-12 13:50 | NUR ---
NOTED ORDER FOR UA. CONTINENT VOID NOTED VIA URINAL AT THIS TIME. WHEN LEFT AND RETURNED TO ROOM TO COLLECT SPECIMEN, NOTED URINAL WAS EMPTY. WHEN ASKED PT WHAT HAPPED HE STATED, "I POURED IT INTO MY CUP OF ORANGE JUICE SO THAT WHEN I NEEDED TO USE IT AGAIN, IT WOULD BE EMPTY." WILL COLLECT URINE SPECIMEN. VSS. WILL CONTINUE PLAN OF CARE.
--- NOTE | 2019-09-12 14:12 | NUR ---
PER DR KOCH AND ALLY HANDLEY TO TRANSFER TO THE FLOOR.
--- NOTE | 2019-09-12 14:25 | NUR ---
URINE SPECIMEN COLLECTED AND SENT TO LAB.
[2019-09-12 14:48] LABS: APPEARANCE CLOUDY (CLEAR); BILIRUBIN NEGATIVE (NEGATIVE); COLOR STRAW (YELLOW); GLUCOSE NEGATIVE (NEGATIVE); KETONE NEGATIVE (NEGATIVE); NITRITE NEGATIVE (NEGATIVE); PROTEIN TRACE mg/dL (NEGATIVE); SPECIFIC GRAVITY 1.015 (1.005-1.020); UROBILINOGEN NORMAL (NORMAL)
[2019-09-12 14:49] LABS: RED CELLS - URINE 0-5 /hpf (0-5); WHITE CELLS - URINE 25-50 /hpf (NEGATIVE)
[2019-09-12 14:50] LABS: BACTERIA FEW /hpf (NEGATIVE); EPITHELIAL CELLS NSEEN /hpf (0-5); SPERMATOZOA 0-5 /hpf (NONE SEEN)
--- NOTE | 2019-09-12 15:02 | NUR ---
UP IN CHAIR BESIDE BED AT THIS TIME. DENIES ANY NEEDS. VSS. WILL CONTINUE PLAN OF CARE.
--- NOTE | 2019-09-12 15:28 | NUR ---
CHG BATH OFFERED. PT REFUSED. TOTAL LINEN CHANGE PROVIDED. VSS. DAUGHTER AT BEDSIDE. BUTTERMAKER IN ROOM SPEAKING WITH PT AND PTS DAUGHTER. WILL CONTINUE PLAN OF CARE.
--- NOTE | 2019-09-12 15:30 | NUR ---
ASSISTED BACK TO BED FROM CHAIR VIA MINIMAL ASSIST. NO ACUTE DISTRESS NOTED. WILL CONTINUE PLAN OF CARE.
--- NOTE | 2019-09-12 15:42 | NUR ---
NOTED ORDER FOR PT TO TRANSFER TO FLOOR. REPORT CALLED TO RECIEVING NURSE FOR PT TO TRANSFER TO ROOM 2123. WILL TRANSFER PT SHORTLY.
--- NOTE | 2019-09-12 16:20 | NUR ---
RECIEVED FROM UNIT. ALERT AND ORIENTED. NO IV. TELEMERTY SHOWS SR. CLOSTOMY NOTED. USES URINAL/ DRSG TO LEFT HAND DENIES ANY NEEDS. WILL MONITOR
--- NOTE | 2019-09-12 16:22 | NUR ---
PT TRANSFERRED TO ROOM 2124 AT THIS TIME WITH ALL PERSONAL ITEMS VIA WHEELCHAIR. VSS. NO ACUTE DISTRESS NOTED. NO FURTHER ACTIONS.
[2019-09-12 18:15] LABS: BASOPHILS 0.1 % (0-2); EOSINOPHILS 0.9 % (0-7); HEMATOCRIT 31.2 % (42.0-54.0); HEMOGLOBIN 9.9 g/dL (13.5-17.5); IMMATURE GRANULOCYTES 0.6 % (0-5); LYMPHOCYTES 14.7 % (15-50); MCH 27.3 pg (26.0-34.0); MCHC 31.7 g/dL (31.0-37.0); MCV 86.2 fL (80.0-100.0); MEAN PLATELET VOLUME 8.7 fL (7.4-10.4); MONOCYTES 5.3 % (2-11); NEUTROPHILS 78.4 % (40-80); PLATELET COUNT 203 10x3/uL (130-400); RBC 3.62 10x6/uL (4.20-6.10); RDW 17.8 % (11.5-14.5); WBC 6.8 10x3/uL (4.8-10.8)
--- NOTE | 2019-09-12 19:26 | MORECARE ---
CASE MANAGEMENT DISCHARGE SUMMARY PATIENT: YANNA QUEZADA UNIT: [id number] ADM DATE: 09/11/19 AGE: 88 : 31 SEX: M ROOM/BED: D.2124 AUTHOR: RUIZ KIRKLAND PHYSICIAN: REFERRING PHYSICIAN: KAYKAY NEVILLE MD DATE OF SERVICE: 09/12/19 Discharge Plan Patient Name: [facility]ANNA UQEZADA [facility] [facility] 1930 Planned Disposition: Anticipated Discharge Date: Discharge Date: Expected LOS: Initial Reviewer: [email or web address] Initial Review Date: 09/11/2019 Generated: 09/12/19 8:26 pm Patient Name: YANNA QUEZADA Page [id number] at 1925 All edits/amendments must be made on the electronic document DICTATION DATE: 09/12/191925 UPSET WELDING MACHINE OPERATOR: ZEINA 09/12/191925 RPT#: [id number] DC DATE: STATUS: ADM IN [facility] [address] [place] [address] END OF REPORT
--- NOTE | 2019-09-12 19:33 | MORECARE ---
CASE MANAGEMENT DISCHARGE SUMMARY PATIENT: YANNA QUEZADA UNIT: [id number] ADM DATE: 09/11/19 AGE: 88 : 31 SEX: M ROOM/BED: D.2124 AUTHOR: RUIZ KIRKLAND PHYSICIAN: REFERRING PHYSICIAN: KAYKAY NEVILLE MD DATE OF SERVICE: 09/12/19 Discharge Plan Patient Name: YANNA QUEZADA [facility] [facility] 1930 Planned Disposition: Anticipated Discharge Date: Discharge Date: Expected LOS: Initial Reviewer: [email or web address] Initial Review Date: 09/11/2019 Generated: 09/12/19 8:33 pm DCPIA - Discharge Planning Initial Assessment Updated by [email or web address]: Keisha Soliman on 09/12/19 7:28 pm * Is the patient Alert and Oriented? Yes * How many steps to enter\exit or inside your home? * PCP AVIVA * Pharmacy [facility] * Preadmission Environment Home Alone * ADLs Partial Dependent * Partial ADLs (Assistance needed) Ambulation Bathing Dressing Eating Medication Management Toileting Transfers * Equipment Oxygen * Other Equipment CANE * List name and contact numbers for known caregivers / representatives who currently or will assist patient after discharge: RHODA QUEZADA - SON - [phone] ANNEL MANJARREZ - DAUGHTER - [phone] * Verbal permission to speak to the caregivers and representatives has been obtained from the patient. Yes * Community resources currently utilized None * Additional services required to return to the preadmission environment? No * Can the patient safely return to the preadmission environment? Yes * Has this patient been hospitalized within the prior 30 days at any hospital? No Last DP export: 09/12/19 6:26 p Patient Name: YANNA QUEZADA Page 33885 at 1933 All edits/amendments must be made on the electronic document DICTATION DATE: 09/12/191932 AREA COORDINATOR: ZEINA 09/12/191932 RPT#: [id number] DC DATE: STATUS: ADM IN [facility] [address] [place] [address] END OF REPORT
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
[2019-09-13] VITALS: BP 100/53
[2019-09-13 00:29] LABS: BASOPHILS 0 % (0-2); EOSINOPHILS 1.1 % (0-7); HEMATOCRIT 29.6 % (42.0-54.0); HEMOGLOBIN 9.4 g/dL (13.5-17.5); IMMATURE GRANULOCYTES 0.6 % (0-5); LYMPHOCYTES 14.2 % (15-50); MCHC 31.8 g/dL (31.0-37.0); MCV 85.1 fL (80.0-100.0); MEAN PLATELET VOLUME 8.9 fL (7.4-10.4); MONOCYTES 7.5 % (2-11); NEUTROPHILS 76.6 % (40-80); PLATELET COUNT 207 10x3/uL (130-400); RBC 3.48 10x6/uL (4.20-6.10); RDW 17.8 % (11.5-14.5); WBC 5.3 10x3/uL (4.8-10.8)
[2019-09-13 04:00] VITALS: BP 96/49
[2019-09-13 06:35] LABS: BASOPHILS 0.2 % (0-2); EOSINOPHILS 0.6 % (0-7); HEMATOCRIT 30.1 % (42.0-54.0); HEMOGLOBIN 9.5 g/dL (13.5-17.5); IMMATURE GRANULOCYTES 0.4 % (0-5); LYMPHOCYTES 15.7 % (15-50); MCH 27.2 pg (26.0-34.0); MCHC 31.6 g/dL (31.0-37.0); MCV 86.2 fL (80.0-100.0); MEAN PLATELET VOLUME 9.3 fL (7.4-10.4); MONOCYTES 6.6 % (2-11); NEUTROPHILS 76.5 % (40-80); PLATELET COUNT 233 10x3/uL (130-400); RBC 3.49 10x6/uL (4.20-6.10); RDW 17.9 % (11.5-14.5); WBC 5.3 10x3/uL (4.8-10.8)
[2019-09-13 06:50] LABS: CALC OSMOLALITY 281 mosm/kg (275-300); CARBON DIOXIDE 22.4 mmol/L (21.0-32.0); CHLORIDE - SERUM 110 mmol/L (98-107); GLUCOSE 79 mg/dL (74-106); MAGNESIUM - SERUM 1.5 mg/dL (1.8-2.4); PHOSPHOROUS 2.7 mg/dL (2.5-4.9); POTASSIUM - SERUM 3.8 mmol/L (3.5-5.1); SODIUM 141 mmol/L (136-145); UREA NITROGEN 18 mg/dL (7-18); eGFR NON AFRICAN AMERICAN 75 mL/min (90-120)
--- NOTE | 2019-09-13 08:00 | NUR ---
ALERT AND ORIENTED. TELEMERTY SHOWS ST 108. PT HAS A COLONTOMY TO RIGHT SIDE. DRSG TO LEFT WRIST. SCABS OVER BODY . WANTS TO GO HOME.
--- NOTE | 2019-09-13 09:40 | NUR ---
JAVED BULLARD NOTIFED OF PT WANTING TO GO HOME. SHE CAME AND TALKED WITH PT. CONSULTS CALLED TO OK BEING DISCHARGED
--- NOTE | 2019-09-13 10:15 | NUR ---
PT WILL NOT WAIT FOR DISCHARGE ORDERS. AMA PAPERS SIGNED AND NV TAKEN BY WHEELCHAIR TO PRIVATE CAR.
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
== END 2019-09-13 11:11 | disposition left against medical advice (07) | DRG 299 ==
LOC: D.ER 16:18 → D.CVICU 19:04 → D.M2 19:04
PROVIDERS: Family Medicine; ADMIT Internal Medicine Nephrology; ATTEND Internal Medicine Nephrology
PROC: 2W3FX1Z Immobilization of Left Hand using Splint (ICD-10-PCS; principal; 2019-09-13)
DX: I71.4 Abdominal aortic aneurysm, without rupture (principal); E43 Unspecified severe protein-calorie malnutrition; N17.9 Acute kidney failure, unspecified; Z68.1 Body mass index [BMI] 19.9 or less, adult; F17.213 Nicotine dependence, cigarettes, with withdrawal; S62.202A Unspecified fracture of first metacarpal bone, left hand, initial encounter for closed fracture; V43.52XA Car driver injured in collision with other type car in traffic accident, initial encounter; E83.42 Hypomagnesemia; J43.9 Emphysema, unspecified; E78.5 Hyperlipidemia, unspecified; I25.10 Atherosclerotic heart disease of native coronary artery without angina pectoris; Z86.73 Personal history of transient ischemic attack (TIA), and cerebral infarction without residual deficits; Z85.038 Personal history of other malignant neoplasm of large intestine